=== PATIENT | male | born 2000 ===

== ENCOUNTER 2020-06-30 17:41 | Observation (INO) ==
[2020-06-30] MEDS ORDERED: Ziprasidone 10 MG in Water for inj. (sterile) 0.5 ML IM ONE (17:46)
[2020-06-30 18:16] LABS: Bilirubin,Urine Negative (Negative); Blood,Urine Negative (Negative); Clarity,Urine Clear (Clear); Color,Urine Light-Yellow (Yellow); Glucose,Urine (UA) Normal (Normal); Ketones,Urine Negative (Negative); Leukocyte Esterase,Urine Negative (Negative); Nitrite,Urine Negative (Negative); PH,Urine 7.5 pH Units (5.0-8.0); Protein,Urine Trace mg/dL (Neg-Trace); Specific Gravity,Urine 1.011 (1.010-1.025); Urobilinogen,Urine Normal (Normal)
[2020-06-30 18:32] LABS: Amphetamine Screen,Urine Positive ng/mL (Cutoff=1000); Barbiturate Screen,Urine Negative ng/mL (Cutoff=200); Benzodiazepines Screen,Urine Negative ng/mL (Cutoff=200); Cannabinoid Screen,Urine Positive ng/mL (Cutoff = 50); Cocaine Screen,Urine Negative ng/mL (Cutoff= 300); Opiate Screen,Urine Negative ng/mL (Cutoff=300); Phencyclidine Screen,Urine Negative ng/mL (Cutoff=25)
[2020-06-30] MEDS ORDERED: *HR* LORazepam 1 MG TABLET PO ONE (20:44)
[2020-06-30] MEDS ORDERED: Mag Hydrox/Al Hydrox/Simeth 30 ML UDC PO PRN (22:08)
[2020-06-30] MEDS ORDERED: traZODone 50 MG TABLET PO PRN (22:08)
[2020-06-30] MEDS ORDERED: *HR* LORazepam 2 MG/ML VIAL IM PRN (22:08)
[2020-06-30] MEDS ORDERED: Haloperidol Lactate 5 MG/ML VIAL IM PRN (22:08)
[2020-06-30] MEDS ORDERED: MOM Conc 10 ML UD.LIQ PO PRN (22:08)
[2020-06-30] MEDS ORDERED: haloperidoL 5 MG TABLET PO PRN (22:08)
[2020-06-30] MEDS ORDERED: Acetaminophen 325 MG TABLET PO PRN (22:08)
[2020-06-30] MEDS ORDERED: hydrOXYzine pamoate 25 MG CAPSULE PO PRN (22:08)
[2020-06-30] MEDS ORDERED: *HR* LORazepam 1 MG TABLET PO PRN (22:08)
[2020-07-01 13:40] VITALS: BP 127/61
== END 2020-07-01 16:35 | disposition home or self-care (01) ==
LOC: EMEROOARM 17:41 → INTOOBSV 23:33 → 1ANU 23:33 → SUATTDRO 23:33 → 1ANU 07-01
PROVIDERS: ADMIT Psychiatry & Neurology Psychiatry; ATTEND Psychiatry & Neurology Forensic Psychiatry